=== PATIENT | male | born 1980 | race Caucasian/White ===

== ENCOUNTER 2022-05-14 22:55 | Emergency (ER) | payer MEDICARE, MEDICAID ==
[~2022-05-14] VITALS: Ht 175.3 cm; Wt 69.9 kg
--- NOTE | 2022-05-14 23:41 | NUR ---
left index finger lac with saw while triming out a deer last tetanus x 1 year
[2022-05-14 23:51] VITALS: BP 140/82
[2022-05-15] MEDS ORDERED: NORCO 5MG PO STA (00:20)
[2022-05-15] MEDS ORDERED: ZOFRAN ODT SL STA (00:20)
[2022-05-15] MEDS ORDERED: NORCO 5MG PO ONE (00:35)
[2022-05-15] MEDS ORDERED: ZOFRAN ODT ONE (00:35)
--- NOTE | 2022-05-15 00:37 | DIREP ---
PROCEDURE:XRAY HAND MIN 3 VW-LT COMPARISON:[facility], CR, XRAY FINGER(S)MIN VWS-LT HAND-THIRD DIGI, 10/30/2015, 06:16 PM. INDICATIONS:laceratio saw FINDINGS: BONES:Normal. JOINTS:Normal. SOFT TISSUES:Tiny radiopacity at the distal aspect of 4th digit, midportion 3rd digit. Sliver like radiopaque foreign body involving the 3rd digit is unchanged when compared with previous examination OTHER:No additional findings. CONCLUSION:No fractures identified. Tiny radiopacity the distal 4th digit. Unchanged radiopaque foreign body 3rd digit. Dictated by: Bc Luther MD on 05/15/2022 at 00:32 AM
--- NOTE | 2022-05-15 00:38 | NUR ---
pt refused norco and zofran.
[2022-05-15] MEDS ORDERED: LIDOCAINE 1% VIAL ONE (00:58)
--- NOTE | 2022-05-15 01:23 | ER.PDOC ---
General Chief Complaint: Requesting Medical Care Stated Complaint: FINGER LAC Time seen by MD: 23:17 Source: patient Exam Limitations: no limitations History of Present Illness Initial Comments Patient is a 42-year-old male with a past medical history documented later in this chart who comes in with a left first finger laceration that occurred while playing gear. Patient states that he was pulling a deer when he cut his first digit on the left hand with a knife sustaining a 4 cm laceration patient states that initially was bleeding somewhat they wrapped up with duct tape really quickly and came to the ER. Patient states that he still has full range of motion and states that sharp pain made worse with movement palpation better with rest. Patient denies any other injuries or concerns at this time. Patient states that his tetanus was updated a year ago. Allergies: Coded Allergies: No Known Allergies (Unverified , 11/03/13) Home Meds No Active Prescriptions or Reported Meds Past Medical History Medical History: other Surgical History: no surgical history Family History Significant Family History: no pertinent family hx Social History Smoking: non-smoker Alcohol Use: occassionally Drug Use: marijuana Reviewed Nursing Reviewed: Vital Signs, Abn. Noted, Nursing Assessment Review of Systems Constitutional: denies no symptoms reported, denies see HPI, denies chills, denies diaphoresis, denies fever, denies malaise, denies weakness, denies other EENTM: denies no symptoms reported, denies see HPI, denies eye pain, denies blurred vision, denies tearing, denies double vision, denies ear pain, denies ear discharge, denies nose pain, denies nose congestion, denies throat pain, denies throat swelling, denies mouth pain, denies mouth swelling, denies other Respiratory: denies no symptoms reported, denies see HPI, denies cough, denies orthopnea, denies shortness of breath, denies stridor, denies wheezing, denies other Cardiovascular: denies no symptoms reported, denies see HPI, denies chest pain, denies edema, denies palpitations, denies syncope, denies other Gastrointestinal: denies no symptoms reported, denies see HPI, denies abdominal pain, denies constipation, denies diarrhea, denies nausea, denies vomiting, denies other Genitourinary: denies no symptoms reported, denies see HPI, denies discharge, denies dysuria, denies frequency, denies hematuria, denies pain, denies other Musculoskeletal: denies no symptoms reported, denies see HPI, denies back pain, denies gout, denies joint pain, denies joint swelling, denies muscle pain, denies muscle stiffness, denies neck pain, denies other Skin: other (lac) Psychiatric/Neurological: denies no symptoms reported, denies see HPI, denies anxiety, denies depressed, denies emotional problems, denies headache, denies numbness, denies paresthesia, denies pre-existing deficit, denies seizure, denies tingling, denies tremors, denies weakness, denies other Physical Exam General Appearance: Alert, No Apparent Distress Hand: tenderness (left 1st digit laceration 4 digit bleeding currently well controlled ) Wrist: nml inspection, non-tender, nml ROM Neuro: sensation nml, motor nml Vascular: no vascular compromise Tendons: tendon function nml Forearm/Elbow/Arm: uninjured above wrist Skin: warm/dry Head/ENT: nml inspection, pharynx nml Neck/Back: nml inspection, non-tender Resp/CVS: no resp distress, lungs clear, heart sounds nml, reg. rate & rhythm Abdomen: non-tender, no organomegaly ED LACERATION WOUND REPAIR # of Wounds/Lacerations Presen: 1 Wound Location & Length (Requi: left first digit Wound Length (cm): 4 Wound cleaned: hibiclens Distal NVT: neuro intact, vasc intact Anesthesia type: digital block Anesthesia: 1% Lidocaine Volume Anesthetic (ccs): 6 Wound's Depth, Shape: superficial Wound Explored: no foreign body removed Wound Debrided: minimal Wound Repaired With: sutures Suture Size/Type: 4:0, ethilon Suture Style: interupted Number of Sutures: 4 Sterile Dressing Applied?: Yes Results/Orders Results/Orders Orders - ZHAO GONSALVES MD Xr Hand Lt (05/15/22 00:00) Hydrocodone/Acetaminophen ([place] 5mg) (05/15/22 00:20) Ondansetron (Zofran Odt) (05/15/22 00:20) Ondansetron (Zofran Odt) (05/15/22 00:35) Hydrocodone/Acetaminophen ([place] 5mg) (05/15/22 00:35) Lidocaine Hcl (Lidocaine 1% Vial) (05/15/22 00:58) Vital Signs Date Time Temp Pulse Resp B/P (MAP) Pulse Ox O2 Delivery O2 Flow Rate FiO2 05/14/22 23:51 98.5 77 20 05/14/22 23:51 98.5 77 20 99 05/14/22 23:51 98.5 77 20 140/82 (101) 99 Room Air* 0 21 Progress Progress Patient is here with a finger laceration will obtain x-ray to make sure there is going to the bone just because it such a dirty wound we will go ahead and discharge patient with antibiotics no need to update tetanus as he already has it recently Been updated. We will plan to repair the laceration. [id number] able to repair the laceration please see that portion of the note. Patient refused any pain medication. Will discharge with Keflex patient voiced understanding when to follow-up and when to return to the ER. ER DEPART Departure Time of Disposition: Disposition: 01 HOME / SELF CARE / HOMELESS Impression: Primary Impression: Hand laceration Condition: Improved Patient Instructions: Laceration Care, Adult Referrals: PCP,UNKNOWN (PCP) PRIMARY CARE PROVIDER Additional Instructions: Please follow-up with your primary care provider in 7 -10 days for a wound evaluation and to have the sutures possibly removed. If you have any new persistent or worsening symptoms or concerns seek medical attention. Please take all medication as prescribed. Scripts No Active Prescriptions or Reported Meds Duration or Time Spent with Pa: 45 Problem Qualifiers Primary Impression: Hand laceration Encounter type: initial encounter Foreign body presence: without foreign body Laterality: left Qualified Codes: S61.412A - Laceration without foreign body of left hand, initial encounter ZHAO GONSALVES MD May 15, 2022 01:23
== END 2022-05-15 01:28 | disposition home or self-care (01) ==
LOC: ER 22:55
DX: S61.211A Laceration without foreign body of left index finger without damage to nail, initial encounter (principal); F10.20 Alcohol dependence, uncomplicated; F12.90 Cannabis use, unspecified, uncomplicated; W26.0XXA Contact with knife, initial encounter; Y93.89 Activity, other specified; Y92.89 Other specified places as the place of occurrence of the external cause; Y99.8 Other external cause status
CPT/HCPCS: 99283; 12002; 73130; J2001

== ENCOUNTER → 2024-04-09 | Outpatient (CLI) | payer MEDICARE, MEDICAID | END | disposition home or self-care (01) | LOC: RAD 09:54 | PROVIDERS: ATTEND Nurse Practitioner Family | DX: M47.816 Spondylosis without myelopathy or radiculopathy, lumbar region (principal); M25.552 Pain in left hip; G80.9 Cerebral palsy, unspecified; M51.369 Other intervertebral disc degeneration, lumbar region without mention of lumbar back pain or lower extremity pain; M43.8X6 Other specified deforming dorsopathies, lumbar region | CPT/HCPCS: 72100 ==

== ENCOUNTER 2024-04-11 19:08 | Emergency (ER) | payer MEDICARE, MEDICAID ==
[~2024-04-11] VITALS: Ht 175.3 cm; Wt 71.2 kg
[2024-04-11 19:16] VITALS: BP 158/102; PULSE 66; RESP 18; TEMP 98.2; O2SAT 94
[2024-04-11 19:22] VITALS: BP 158/102; PULSE 66; RESP 18; TEMP 98.2; O2SAT 94
[2024-04-11] MEDS ORDERED: NS 1000ML 1,000 ML ONE (19:29)
[2024-04-11] MEDS ORDERED: MECLIZINE HCL ONE (19:29)
[2024-04-11 19:32] LABS: BASOPHIL # 0.1 10^3/uL (0.0-0.1); BASOPHIL % 0.9 % (0.2-1.2); EOSINOPHIL # 0.3 10^3/uL (0.0-0.2); EOSINOPHIL % 2.8 % (0.0-5.0); HEMATOCRIT(ML) 49.4 % (37.0-53.0); HEMOGLOBIN 16.4 g/dL (13.9-16.3); LYMPHOCYTES # 2.45 10^3/uL1 (1.0-4.8); LYMPHOCYTES % 23.7 % (24.0-44.0); MEAN CORP HGB 28.1 pg (26-34); MEAN CORP HGB CONCENTRATION 33.2 g/dL (33-36.5); MEAN CORP VOLUME 84.6 fL (78-100); MONOCYTES # 0.5 10^3/uL (0.3-0.8); MONOCYTES % 4.9 % (5.0-12.0); NEUTROPHILS % 67.5 % (41.0-85.0); PLATELET COUNT 318 10^3/uL (150-400); RED BLOOD CELL 5.84 10^6/uL (4.50-5.90); RED CELL DISTRIBUTION WIDTH 13.1 % (11.5-14.5); WHITE BLOOD CELL 10.4 10^3/uL (4.5-11.0)
[2024-04-11 19:33] LABS: +ADD MANUAL DIFF(NO CHRG) NO
[2024-04-11] MEDS: NS 1000ML 1,000 ML IV STA (19:33)
[2024-04-11] MEDS: MECLIZINE HCL PO STA (19:34)
[2024-04-11 19:49] LABS: ALANINE AMINOTRANSFERASE(ML) 18 U/L (12-78); ALBUMIN/GLOBULIN RATIO 1.025; ALKALINE PHOSPHATASE 62 U/L (50-136); ANION GAP 11.8; ASPARTATE AMINO TRANSFERASE 13 U/L (0-35); CALCIUM 9.2 mg/dL (8.4-10.5); CARBON DIOXIDE 29.3 mmol/L (20.0-32); CREATINE KINASE 224 U/L (39-308); CREATININE SERUM 1.28 mg/dL (0.59-1.40); EST GFR, NON-AA 60.5 (>/=60); GLUCOSE 105 mg/dL (74-106); POTASSIUM 4.1 mmol/L (3.6-5.2); SODIUM 136 mmol/L (132-145)
[2024-04-11 20:01] LABS: TROPONIN I HIGH SENSITIVITY < 4 ng/L (0-75)
[2024-04-11 20:22] LABS: BILIRUBIN,URINE NEGATIVE (NEGATIVE); LEUKOCYTE ESTERASE ,URINE NEGATIVE (NEGATIVE); NITRATE,URINE NEGATIVE (NEGATIVE); PH,URINE 7.5 (4.5-8.0)
[2024-04-11 20:23] LABS: APPEARANCE,URINE CLEAR; UA COLOR YELLOW
[2024-04-11] MEDS ORDERED: HYDR25TA PO (20:38)
[2024-04-11 20:42] VITALS: BP 138/95; PULSE 68; RESP 18; TEMP 98.2; O2SAT 96
== END 2024-04-11 20:45 | disposition home or self-care (01) ==
LOC: ER 19:08 → EDBD 19:08 → ER 20:45
DX: R42 Dizziness and giddiness (principal); R53.1 Weakness; E86.0 Dehydration; F12.90 Cannabis use, unspecified, uncomplicated
CPT/HCPCS: 99285; 96360; 70450; 71045; 81003; 80053; 85025; 36415; 84484; 82550; 93005; J7030; J8597